=== PATIENT | female | born 1975 | race Two or more races ===

== ENCOUNTER 2017-10-02 17:34 | Emergency (ER) | payer MEDICAID ==
[2017-10-02 18:02] VITALS: BP 132/75
[2017-10-02 18:58] LABS: Urine Bacteria FEW /hpf (None Seen); Urine Blood 1+ /uL (Negative); Urine Mucus FEW (None Seen); Urine Specific Gravity 1.019 (1.001-1.035); Urine WBC 12 /hpf (0 - 5)
[2017-10-02] MEDS ORDERED: cefTRIAXone SOD 1,000 MG VL IM ONE (22:00)
== END 2017-10-02 22:29 | disposition home or self-care (01) ==
LOC: ER 17:40
DX: N39.0 Urinary tract infection, site not specified (principal); R39.15 Urgency of urination
CPT/HCPCS: 81001; 96372; 99283; J0696